=== PATIENT | male | born 1985 | race Caucasian/White ===

== ENCOUNTER → 2020-11-24 | Outpatient (CLI) | payer OTHER ==
--- NOTE | 2020-11-24 13:08 | RAD ---
XR RIBS MIN 3 VIEWS RT W/PA CHEST DATE: 11/24/2020 12:48 PM INDICATION: RIGHT ANTERIOR 9TH AND 10TH RIB PAIN COMPARISON: None available. FINDINGS: Chest: Heart size is within normal limits. No focal consolidations are seen. No evidence for pulmona ry edema, pleural effusion, or pneumothorax. Bones: No radiographic evidence for a displaced, right-sided rib fracture is seen. IMPRESSION: No radiographic evidence for right-sided rib fracture. Electronically signed by: Oni Bro MD (11/24/2020 1:05 PM) [facility]
== END ==
LOC: RAD 12:43
PROVIDERS: ATTEND Nurse Practitioner Family
DX: R07.81 Pleurodynia (principal)
CPT/HCPCS: 71101